=== PATIENT | female | born 1995 | race Caucasian/White ===

== ENCOUNTER 2021-02-23 10:01 | Emergency (ER) | payer MEDICAID, SELFPAY ==
[2021-02-23 10:05] VITALS: BP 138/84; PULSE 85; RESP 16; TEMP 36.7; O2SAT 99; BMI 27.8
--- NOTE | 2021-02-23 10:28 | ED.GENADULT ---
HPI - General Adult General Chief complaint: Vaginal Bleeding Stated complaint: miscarriage, vaginal bleeding Time Seen by Provider: 02/23/21 10:05 Source: patient Mode of arrival: ambulatory Limitations: no limitations History of Present Illness HPI narrative: Patient presents to ED for vaginal bleeding. Patient states in [place] on January 14 she found out she was in the ER and by ultrasound was found to be . Than on January 15 patient returned for heavy bleeding and abdominal pain and was informed she might have a miscarriage but at that time there was no technology adoption manager available in the hospital so patient never had a follow-up ultrasound ever since. Patient states she is bleeding clots and then bleeding stopped 3 days later. Patient states the vaginal bleeding resumed February 08 has been persistent ever since. Patient states bleeding has significantly decreased to now having only brown spotting. Denies any abdominal pain, chest pain, dizziness, weakness or shortness of breath. Related Data Allergies Allergy/AdvReac Type Severity Reaction Status Date / Time SEAFOOD Allergy Severe SWELLING Uncoded 06/30/20 19:22 THROAT AND CLOSING Review of Systems Review of Systems: Yes all other systems are reviewed and are negative Constitutional: Constitutional: Reports as per HPI and Reports no additional constitutional complaints Eyes: Eyes: Reports as per HPI and Reports no additional eye complaints ENT: Reports system reviewed and no additional complaints, except as documented and Reports as per HPI Cardiovascular: Cardiovascular: Reports as per HPI and Reports no additional cardiovascular complaints Respiratory: Respiratory: Reports as per HPI and Reports no additional respiratory complaints Genitourinary: Genitourinary: Reports no additional female genitourinary complaints, Reports as per HPI and Reports abnormal vaginal bleeding Musculoskeletal: Musculoskeletal: Reports no additional musculoskeletal complaints and Reports as per HPI Neurologic: Reports system reviewed and no additional complaints, except as documented and Reports as per HPI Psychiatric: Psychiatric: Reports no additional psychiatric complaints and Reports as per HPI PMF Social History Social History Smoked in Last 30 Days: No Use of substances other than those prescribed or required for medical reasons: Yes Substance Use Type: Marijuana Advance Directives: No Advance Directives Information Provided: No Patient : No Physical Exam Vital Signs: Vital Signs: Last Vital Signs Temp 98.0 F 02/23/21 10:05 Pulse 85 02/23/21 10:05 Resp 16 02/23/21 10:05 BP 138/84 02/23/21 10:05 Pulse Ox 99 02/23/21 10:05 Body Mass Index 27.8 Const: General: cooperative, healthy appearing, comfortable, no acute distress, well developed, alert, awake and Physically active HENMT: Head: Yes normal to inspection, Yes No palpable skull fracture present, Yes normocephalic and Yes atraumatic Eyes: General: appearance normal, both eyes and all related structures Neck: Neck: Yes normal visual inspection, Yes full ROM, Yes no lymphadenopathy, Yes no meningeal signs, Yes trachea midline, Yes supple and No tender Chest: Chest palpation & inspection: normal inspection of the chest and normal palpation of entire chest wall Resp: Effort & Inspection: normal respiratory effort and able to speak in complete sentences Auscultation: clear to auscultation bilaterally Cardio: Jugular venous distension: no JVD Heart sounds: S1 normal heart sound present and S2 normal heart sound present GI: Inspection: Yes normal to inspection and No abdominal wall ecchymosis Palpation (GI): Soft to palpation, not firm, nontender, no guarding and not rigid : General: No CVA tenderness and Yes no CVA tenderness Back/Spine/Pelvis: Back: no CVA tenderness, No CVA tenderness and No back tenderness Skin: General skin exam: no rashes or lesions noted and elasticity normal Neuro: General: patient oriented x3, no meningeal signs and CN's II-XI intact bilaterally Cranial nerves: Yes CN's II-XII intact bilaterally Extrem: General: Yes normal to inspection and Yes full ROM Right upper extremity: normal to inspection Psych: Appearance: grossly normal, well kempt and not disheveled Course Course Course Narrative: Will do basic labs and evaluate for anemia and to see patient is . Patient presently not on any distress. Will do pelvic exam. Reevaluation(s) Reevaluation #1: Patient labs are stable. Patient is not anemic. Patient is not . Labs do not show signs signs of dehydration. Kidney function is normal. Vital signs stable. Patient is hemodynamically stable. Certainly a picture from a phone of the bleeding with blood clot that she had in [place] on January 15. In picture seems as product of conception in the tube with blood clots. Reevaluation #2: Patient's pelvic exam negative for vaginal bleeding, vaginal discharge, vaginal lesions, CMT, or adnexal tenderness. Dr. Lundy of OBGYN was consulted and informed of patient's history, physical exam, and labs. She does not recommend any Ultrasound. She is agreeable that patient most likely had complete spontaneous in January. She recommends just BV, and CTNG and patient to follow-up as outpatient Medical Decision Making MDM Narrative Medical decision making narrative: Dysfunctional uterine bleeding. Lab Data Result diagrams: 02/23/21 10:31 02/23/21 10:31 Labs: Lab Results 02/23/21 02/23/21 02/23/21 Range/Units 10:30 10:31 10:31 WBC 8.4 (4.8-10.8) X10*3/uL RBC 4.06 L (4.20-5.50) X10*6/uL Hgb 12.7 (12.0-16.0) g/dl Hct 39.1 (37-47) % MCV 96.3 (80-98) fL MCH 31.3 (27.0-33.0) pg MCHC 32.5 (31.0-35.0) g/dl RDW 12.5 (11.0-16.0) % Plt Count 336 (160-400) X10*3/uL MPV 11.6 (9.4-12.3) fL Immature Gran % (Auto) 0.5 H (0.0-0.4) % Neut % (Auto) 48.0 (45-73) % Lymph % (Auto) 34.0 (20-40) % [place] % (Auto) 8.3 (2-11) % Eos % (Auto) 8.6 H (0-4) % Baso % (Auto) 0.6 (0-2) % Lymph # (Auto) 2.9 (1.2-4.9) X10*3/uL [place] # (Auto) 0.7 (0.1-1.2) X10*3/uL Eos # (Auto) 0.7 H (0.0-0.4) X10*3/uL Baso # (Auto) 0.1 (0.0-0.2) X10*3/uL Abs Immat Gran (auto) 0.04 H (0.00-0.03) X10*3/uL Absolute Neuts (auto) 4.0 (2.0-8.3) X10*3/uL Absolute Nucleated RBC 0.000 (0.0-0.012) X10*3/uL Nucleated RBC % (auto) 0.0 (0.0-0.2) /100WBC PT 11.8 (10.8-13.0) SEC INR 1.0 (0.9-1.1) APTT 37.9 (24.1-38.0) SEC Sodium (135-145) mmol/L Potassium (3.3-5.1) mmol/L Chloride (96-108) mmol/L Carbon Dioxide (22-29) mmol/L Anion Gap (12-20) BUN (9-16) mg/dL Creatinine (0.5-1.4) mg/dL Estim Creat Clear Calc Estimated GFR Random Glucose (60-115) mg/dL Calcium (8.4-10.2) mg/dL Magnesium (1.6-2.6) mg/dL Total Bilirubin (0.0-1.0) mg/dL Direct Bilirubin (0.0-0.5) mg/dL AST (5-31) U/L ALT (0-31) U/L Alkaline Phosphatase (39-117) U/L Total Protein (6.5-8.0) g/dL Albumin (3.5-5.0) g/dL Beta HCG, Quant mIU/mL Urine Color Urine Appearance Urine pH (5.0-8.0) Ur Specific [place] (1.005-1.025) Urine Protein (NEG-TRACE) MG/DL Urine Glucose (UA) (NEG) MG/DL Urine Ketones (NEG) MG/DL Urine Blood (NEG) Urine Nitrite (NEG) Ur Leukocyte Esterase (NEG) Urine RBC (0) /HPF Urine WBC (0-4) /HPF Ur Squamous Epith Cells /LPF Urine Bacteria /LPF Blood Type O Positive 02/23/21 02/23/21 02/23/21 Range/Units 10:31 10:31 10:31 WBC (4.8-10.8) X10*3/uL RBC (4.20-5.50) X10*6/uL Hgb (12.0-16.0) g/dl Hct (37-47) % MCV (80-98) fL MCH (27.0-33.0) pg MCHC (31.0-35.0) g/dl RDW (11.0-16.0) % Plt Count (160-400) X10*3/uL MPV (9.4-12.3) fL Immature Gran % (Auto) (0.0-0.4) % Neut % (Auto) (45-73) % Lymph % (Auto) (20-40) % [place] % (Auto) (2-11) % Eos % (Auto) (0-4) % Baso % (Auto) (0-2) % Lymph # (Auto) (1.2-4.9) X10*3/uL [place] # (Auto) (0.1-1.2) X10*3/uL Eos # (Auto) (0.0-0.4) X10*3/uL Baso # (Auto) (0.0-0.2) X10*3/uL Abs Immat Gran (auto) (0.00-0.03) X10*3/uL Absolute Neuts (auto) (2.0-8.3) X10*3/uL Absolute Nucleated RBC (0.0-0.012) X10*3/uL Nucleated RBC % (auto) (0.0-0.2) /100WBC PT (10.8-13.0) SEC INR (0.9-1.1) APTT (24.1-38.0) SEC Sodium 138 (135-145) mmol/L Potassium 4.9 (3.3-5.1) mmol/L Chloride 104 (96-108) mmol/L Carbon Dioxide 25 (22-29) mmol/L Anion Gap 14 (12-20) BUN 11 (9-16) mg/dL Creatinine 0.81 (0.5-1.4) mg/dL Estim Creat Clear Calc 98.3 Estimated GFR > 60 Random Glucose 89 (60-115) mg/dL Calcium 9.8 (8.4-10.2) mg/dL Magnesium 1.9 (1.6-2.6) mg/dL Total Bilirubin 0.2 (0.0-1.0) mg/dL Direct Bilirubin < 0.2 (0.0-0.5) mg/dL AST 16 (5-31) U/L ALT 12 (0-31) U/L Alkaline Phosphatase 86 (39-117) U/L Total Protein 8.2 H (6.5-8.0) g/dL Albumin 4.5 (3.5-5.0) g/dL Beta HCG, Quant < 2 mIU/mL Urine Color YELLOW Urine Appearance HAZY Urine pH 6.0 (5.0-8.0) Ur Specific [place] 1.025 (1.005-1.025) Urine Protein NEG (NEG-TRACE) MG/DL Urine Glucose (UA) NEG (NEG) MG/DL Urine Ketones NEG (NEG) MG/DL Urine Blood 2+ H (NEG) Urine Nitrite NEG (NEG) Ur Leukocyte Esterase NEG (NEG) Urine RBC 1-4 (0) /HPF Urine WBC 0-2 (0-4) /HPF Ur Squamous Epith Cells 2+ /LPF Urine Bacteria NONE /LPF Blood Type Discharge Plan Discharge Clinical Impression: Vaginal bleeding Patient Disposition: Home, Self-Care Instructions: Dysfunctional Uterine Bleeding (ED) Additional Instructions: Regrese al servicio de urgencias si tiene dolor abdominal, n?useas, v?mitos, sangrado vaginal profuso, recuentos sangu?neos, mareos o cualquier otro s?ntoma preocupante. Mariano prueba de embarazo en [place] result? negativa. Shannan un seguimiento con el Dr[facility] Enrrique polo [facility]. Referrals: Alicia Lundy MD [Physician] - 2 days (Vaginal bleeding. Miscarriage in January in [place]. Sound like patient had complete in [place] in January. Present beta hCG negative.) Stand Alone Forms: Work/School Release Interventions: ED Discharge Assessment Last Done: 02/23/21 13:56 Discharge Date/Time: 02/23/21 13:57
[2021-02-23 10:38] LABS: MANUAL DIFF FLAG NO
[2021-02-23 10:42] LABS: Basophils Absolute Auto 0.1 X10*3/uL (0.0-0.2); Basophils Percent Auto 0.6 % (0-2); Eosinophils Absolute Auto 0.7 X10*3/uL (0.0-0.4); Eosinophils Percent Auto 8.6 % (0-4); Hematocrit 39.1 % (37-47); Hemoglobin 12.7 g/dl (12.0-16.0); Imm Gran Abs Auto 0.04 X10*3/uL (0.00-0.03); Imm Gran Pct Auto 0.5 % (0.0-0.4); Lymphocytes Absolute Auto 2.9 X10*3/uL (1.2-4.9); Mean Corpuscular HGB Conc 32.5 g/dl (31.0-35.0); Mean Corpuscular Hemoglobin 31.3 pg (27.0-33.0); Mean Corpuscular Volume 96.3 fL (80-98); Mean Platelet Volume 11.6 fL (9.4-12.3); Monocytes Absolute Auto 0.7 X10*3/uL (0.1-1.2); Monocytes Percent Auto 8.3 % (2-11); Platelet Count 336 X10*3/uL (160-400); Red Blood Count 4.06 X10*6/uL (4.20-5.50); Red Cell Distribution Width 12.5 % (11.0-16.0); White Blood Count 8.4 X10*3/uL (4.8-10.8)
[2021-02-23 10:48] LABS: Prothrombin Time 11.8 SEC (10.8-13.0)
[2021-02-23 10:50] LABS: Partial Thromboplastin Time 37.9 SEC (24.1-38.0)
[2021-02-23 10:55] LABS: Glucose Urine UA NEG (NEG); Leukocyte Esterase Urine NEG (NEG); Nitrite Urine NEG (NEG); Specific Gravity - Urine 1.025 (1.005-1.025); Urine Blood 2+ (NEG); Urine Ketones NEG (NEG); Urine Protein NEG (NEG-TRACE)
[2021-02-23 10:58] LABS: Appearance Urine HAZY; Color Urine YELLOW
[2021-02-23 11:04] LABS: Alanine Aminotransferase 12 U/L (0-31); Albumin Level 4.5 g/dL (3.5-5.0); Alkaline Phosphatase 86 U/L (39-117); Anion Gap 14 (12-20); Aspartate Amino Transferase 16 U/L (5-31); Bilirubin Direct < 0.2 mg/dL (0.0-0.5); Bilirubin Total 0.2 mg/dL (0.0-1.0); Blood Urea Nitrogen 11 mg/dL (9-16); Calcium 9.8 mg/dL (8.4-10.2); Carbon Dioxide 25 mmol/L (22-29); Chloride 104 mmol/L (96-108); Creatinine Clr Calc Pharmacy 98.3; Estimated Glomerular Filt Rate > 60; Glucose Random 89 mg/dL (60-115); Magnesium 1.9 mg/dL (1.6-2.6); Potassium 4.9 mmol/L (3.3-5.1); Sodium 138 mmol/L (135-145); Total Protein 8.2 g/dL (6.5-8.0)
--- NOTE | 2021-02-23 11:05 | PC.NURSE ---
patient blood type O positive. will notify
[2021-02-23 11:07] LABS: Squamous Epithelial Cell Urine 2+ /LPF; WBC Urine 0-2 /HPF (0-4)
[2021-02-23 11:10] LABS: HCG Quantitative < 2 mIU/mL
[2021-02-23 15:19] LABS: CT PCR NOT DETECTED (Not Detect.); NG PCR NOT DETECTED (Not Detect.)
[2021-02-24 09:15] LABS: BV Int Neg Control Negative (Negative); BV Int Pos Control Positive (Positive)
== END 2021-02-23 13:57 | disposition home or self-care (01) ==
PROVIDERS: Physician Assistant; Emergency Provider Emergency Medicine
DX: N93.9 Abnormal uterine and vaginal bleeding, unspecified (principal)
CPT/HCPCS: 36415; 80048; 80076; 81001; 83735; 84702; 85025; 85610; 85730; 86900; 86901; 87480; 87491; 87510; 87591; 87660; 99283; 99284

== ENCOUNTER 2021-03-06 15:43 | Outpatient (REF) | payer MEDICAID, SELFPAY ==
[2021-03-07 08:58] LABS: BV Int Neg Control Negative (Negative); BV Int Pos Control Positive (Positive)
[2021-03-07 08:59] LABS: CT PCR NOT DETECTED (Not Detect.); NG PCR NOT DETECTED (Not Detect.)
== END 2021-03-06 15:44 | disposition home or self-care (01) ==
LOC: HO.LAB 15:43
PROVIDERS: Visit Provider Obstetrics & Gynecology
DX: O03.9 Complete or unspecified spontaneous abortion without complication (principal); F17.200 Nicotine dependence, unspecified, uncomplicated; Z11.3 Encounter for screening for infections with a predominantly sexual mode of transmission
CPT/HCPCS: 87480; 87491; 87510; 87591; 87660; 88142; 99202

== ENCOUNTER 2021-04-14 13:41 | Emergency (ER) | payer MEDICAID, SELFPAY ==
[2021-04-14 13:45] VITALS: BP 105/52; PULSE 62; RESP 16; TEMP 37.1; O2SAT 99; BMI 25.7
--- NOTE | 2021-04-14 15:59 | ED_ITS ---
HPI - General Adult General Chief complaint: General Medical Stated complaint: SEIZURE Time Seen by Provider: 04/14/21 15:55 Source: patient and EMS Mode of arrival: EMS Limitations: no limitations History of Present Illness HPI narrative: 25 y/o female with history of seizures not on any medications who presents to the ER from work with witnessed generalized tonic clonic seizure that lasted about 30 seconds. She felt an aura before the event, hold her co- workers who helped lower her to the ground. She had brief seizure activity with generalized tonic clonic movements. She has no injuries and no incontinence. She reports history of seizures in the past when she lives in [place] but she states she was never put on any medications. complaint: seizure Onset (ago): hour(s) (1) Severity: moderate Relieving factors: none Exacerbating factors: none Associated symptoms: denies other symptoms Treatments prior to arrival: none Related Data Previous Rx's Medication Instructions Recorded desogestrel 0.15 mg-ethinyl 1 tab PO DAILY 28 Days #28 tab 03/06/21 estradiol 0.03 mg tablet Allergies Allergy/AdvReac Type Severity Reaction Status Date / Time SEAFOOD Allergy Severe SWELLING Uncoded 06/30/20 19:22 THROAT AND CLOSING Review of Systems Review of Systems: Constitutional: No Fever, No Chills ENT/Mouth: No sore throat, No Rhinorrhea, No Swallowing Difficulty Eyes: No Eye Pain, No Swelling, No Redness Cardiovascular: No Chest Pain, No SOB, No Orthopnea, No Edema Respiratory: No Cough, No Sputum, No Wheezing, No dyspnea Gastrointestinal: No Nausea, No Vomiting, No Diarrhea, No abdominal Pain, No Hematochezia, No Melena Genitourinary: No Dysuria, No Urinary Frequency, No Hematuria Musculoskeletal: No joint pain, No Myalgias Skin: No Skin Lesions, No rash Neuro: No Weakness, No Numbness, No Dizziness, + Headache Psych: No Anxiety/Panic, No Depression Heme/Lymph: No Bruising, No Lymphadenopathy Endocrine: No Polyuria, No Polydipsia PMFSH Past Medical History Attestation statement: The following information was validated with the patient. Social History Social History Alcohol intake: never Patient Tobacco Use Status: Never used Tobacco Use of substances other than those prescribed or required for medical reasons: No Substance Use Type: Marijuana Advance Directives: Yes Advance Directives Information Provided: Yes Advance Directives on File: No Patient : No Physical Exam Vital Signs: Vital Signs: Last Vital Signs Temp 98.8 F 04/14/21 13:45 Pulse 62 04/14/21 13:45 Resp 16 04/14/21 13:45 BP 105/52 L 04/14/21 13:45 Pulse Ox 99 04/14/21 13:45 Body Mass Index 25.7 Appearance: Alert. Oriented X3. No acute distress. Eyes: Pupils equal, round and reactive to light. ENT: Pharynx normal. Neck: Normal inspection. Neck supple. CVS: Normal heart rate and rhythm. Pulses normal. Respiratory: No respiratory distress. Breath sounds normal. Abdomen: Soft and nontender. +BS x4 Skin: Skin warm and dry. Normal skin color. Normal skin turgor. No rashes. Extremities: No lower extremity edema. Neuro: Oriented X 3. No motor deficit. No sensory deficit. Up walking around in the room. Non-focal Course Course Course Narrative: 25 y/o female presenting with witnessed seizure activity at work. History of similar episodes. Patient waited 2 hours to be seen and once evaluated she reports she needs to leave the ER CRISTOPHER to get home to her children. She feels fine and would like to leave AMA. Encouraged to stay for basic workup however she is refusing. She understands the risks of possible ongoing seizures and potential . Signed AMA paperwork and agrees to call her provider at [facility] Saturday to be seen. Discharge Plan Discharge Clinical Impression: Seizure Patient Disposition: Left Against Medical Advice Instructions: Generalized Tonic Clonic Seizures (ED) Additional Instructions: It was recommended you stay in the ER for full workup, however you decided to leave against medial advise. Follow up with your doctor on Saturday. Prescriptions: No Action desogestrel-ethinyl estradiol [Apri] 0.15-0.03 mg tablet 1 tab PO DAILY 28 Days Qty: 28 RF: 2 Stand Alone Forms: Against Medical Advice Interventions: ED Discharge Assessment Last Done: 04/14/21 16:07 Discharge Date/Time: 04/14/21 16:08
--- NOTE | 2021-04-14 16:00 | PC.NURSE ---
pt requesting to leave. pa aware. pa at bedside.
== END 2021-04-14 16:08 | disposition left against medical advice (07) ==
PROVIDERS: Emergency Provider Emergency Medicine Emergency Medical Services
DX: R56.9 Unspecified convulsions (principal)
CPT/HCPCS: 99282; 99284

== ENCOUNTER 2025-03-23 23:19 | Emergency (ER) | payer MEDICAID, SELFPAY ==
[2025-03-23 23:49] VITALS: BP 107/52; PULSE 60; RESP 17; TEMP 36.3; O2SAT 100; BMI 25.3
[2025-03-24 02:05] LABS: MANUAL DIFF FLAG NO
--- OUTSIDE RECORDS SUMMARY | 2025-03-24 02:06 | XMS_ITS | Clinical Summary ---
Author Organization [facility] Address [address] [place] [address] Care Team Providers Care Clerical Stock Inspector Name Role Phone Iraida Magdaleno MD Primary Care Provider + Allergies Active Allergy Reactions Criticality Noted Date Comments Shellfish Allergy 02/24/2024 Active Problems Problem Noted Date Diagnosed Date Anxiety and depression 10/23/2024 Asthma 10/23/2024 Bipolar disorder 10/23/2024 Cyst of ovary 10/23/2024 Environmental and seasonal allergies 10/23/2024 History of varicella 10/23/2024 Infection due to Chlamydia species 10/23/2024 Irregular menstrual cycle 10/23/2024 Non-Persian speaking patient 10/23/2024 10/23/2024 Moderate episode of recurrent major depressive d isorder 06/01/2024 Encounters Date Type Department Care Team Description 12/25/2024 Population Health Risk Score [facility] ([facility]) Department [address] [id number] Provider, Population Health Generic from Last 3 Months Immunizations Immunization Administration Dates Next Due Hep B, Unspecified 09/13/2018 Influenza injectable quadrivalent preservative f ree 07/08/2018 MMR 09/13/2018 Tdap 07/09/2024 Social History Tobacco Use Types Packs/Day Years Used Date Smoking Tobacco: Never Smokeless Tobacco: Never Tobacco Cessation:Counseling Given: Not Answered Alcohol Use Standard Drinks/Week Comments Never 0 (1 standard drink = 0.6 oz pur e alcohol) Depression Answer Date Recorded Patient Health Questionnaire-9 Score 16 06/01/2024 Patient Health Questionnaire-9 Score 16 06/01/2024 Last PHQ-9: Questionnaire Data Not on file 0 06/01/2024 Housing Stability Answer Date Recorded What is your housing situation today? I have soniya sing 09/18/[address] you li ve. Do you have problems with any of the following? None of the above 09/18/2024 Food Insecurity Answer Date Recorded Within the past 12 months, y ou worried that your food would run out before you got money to buy more: Never True 09/18/2024 Within the past 12 months,th e food you bought just didn't last and you didn't have enough money to get more: Never True 03/2024 Transportation Answer Date Recorded In the past 12 months, has l ack of transportation kept you from medical appts, meetings, work or from getting things needed for daily living? No 09/18/2024 Utilities Answer Date Recorded In the past 12 months, has t he electric, gas, oil or water company threatened to shut off services in your home? No 09/18/2024 Depression Answer Date Recorded Patient Health Questionnaire-2 Score 6 06/01/2024 Internet Access Answer Date Recorded Internet Access Q1 Yes 09/18/2024 Internet Access Q2 Not on file 09/18/2024 Comments Unknown Sex and Gender Information Value Date Recorded Sex Assigned at Female 08/13/2022 10:36 AM EDT Legal Sex Female 10:36 AM EDT Gender Identity Female 01/09/2024 8:58 AM EDT Sexual Orientation Choose not to disclose 2023 6:15 PM EDT Last Filed Vital Signs Vital Sign Reading Time Taken Comments Blood Pressure 114/66 02/24/2024 6:50 PM EDT Pulse 71 02/24/2024 6:50 PM EDT Temperature 36.2 ??C (97.2 ??F) 02/24/2024 6:50 PM ED T Respiratory Rate - - Oxygen Saturation 98% 02/24/2024 6:50 PM EDT Inhaled Oxygen Concentration - - Weight 67.2 kg (148 lb 4 oz) 02/24/2024 6:50 PM EDT Height - - Body Mass Index - - Plan of Treatment Health Maintenance Due Date Last Done Comments HIV Screening 1997 Disability Screening 1997 Alcohol/Substance Use Screening 2009 Family Planning (PISQ) 2012 Hepatitis C Screening 2015 Pneumococcal Vaccine: Pediatrics (0 to 5 Years) and At-Risk Patients (6 to 49) Years) (1 of 2 - PCV) 2016 Hepatitis B Vaccines (2 of 3 - 19+ 3-dose series) 10/11/2018 09/13/2018 Pap Smear 03/06/2024 03/06/2021 COVID-19 Vaccine (3 - 2023-2 5 season) 2024 04/02/2021, 03/12/2021 Depression Monitoring 12/02/2024 06/01/2024 , 06/01/2024 Influenza Vaccine (Season Ended) 2025 07/08/2018 SDOH Screening 09/18/2025 09/18/2024 Tobacco Screening 09/18/2025 09/18/2024 DTaP/Tdap/Td Vaccines (2 - T d or Tdap) 07/09/2034 07/09/2024 Zoster Vaccines (1 of 2) 2047 RSV Patients and Patients Aged 60 years or older (1 - 1-dose 75+ series) 2072 HIB Vaccines Aged Out No longer eligi ble based on patient's age to complete this topic HPV Vaccines Aged Out No longer eligi ble based on patient's age to complete this topic Hepatitis A Vaccines Aged Out No long er eligible based on patient's age to complete this topic IPV Vaccines Aged Out No longer eligi ble based on patient's age to complete this topic Meningococcal B Vaccine Aged Out No l onger eligible based on patient's age to complete this topic Meningococcal Vaccine Aged Out No nicanor annette eligible based on patient's age to complete this topic RSV under 20 months Aged Out No longe r eligible based on patient's age to complete this topic Rotavirus Vaccines Aged Out No longer eligible based on patient's age to complete this topic Procedures Procedure Name Priority Date/Time Associated Diagnosis Comments HM PAP/HPV Routine 03/06/2021 from Last 3 Months or Most Recently Relevant to Health Maintenance Results * Hm Pap Smear (03/06/2021) Historical Provider HEALTH MAINTENANCE Final Result from Last 3 Months or Most Recently Relevant to Health Maintenance Insurance [facility] Care Teams Clerical Stock Inspector Relationship Specialty Start Date End Date Iraida Magdaleno MD [address] [place] [id number] PCP - General Internal Medicine 10/23/24
[2025-03-24 02:09] LABS: Basophils Absolute Auto 0.1 X10*3/uL (0.0-0.2); Basophils Percent Auto 0.9 % (0-2); Eosinophils Absolute Auto 0.3 X10*3/uL (0.0-0.4); Eosinophils Percent Auto 3.8 % (0-4); Hematocrit 35.5 % (37.0-47.0); Hemoglobin 12.1 g/dl (12.0-16.0); Imm Gran Abs Auto 0.03 X10*3/uL (0.00-0.03); Imm Gran Pct Auto 0.3 % (0.0-0.4); Lymphocytes Absolute Auto 3.3 X10*3/uL (1.2-4.9); Lymphocytes Percent Auto 38.5 % (20-40); Mean Corpuscular HGB Conc 34.1 g/dl (31.0-35.0); Mean Corpuscular Hemoglobin 31.2 pg (27.0-33.0); Mean Corpuscular Volume 91.5 fL (80.0-98.0); Mean Platelet Volume 11.4 fL (9.4-12.3); Monocytes Absolute Auto 0.8 X10*3/uL (0.1-1.2); Monocytes Percent Auto 8.7 % (2-11); Neutrophils Absolute Auto 4.1 x10*3/uL (2.0-8.3); Neutrophils Percent Auto 47.8 % (45-73); Platelet Count 210 X10*3/uL (160-400); Red Blood Count 3.88 X10*6/uL (4.20-5.50); Red Cell Distribution Width 14.4 % (11.0-16.0); White Blood Count 8.6 X10*3/uL (4.8-10.8)
[2025-03-24 02:21] LABS: Alanine Aminotransferase 28 U/L (0-31); Albumin Level 4.7 g/dL (3.5-5.0); Alkaline Phosphatase 59 U/L (39-117); Anion Gap 11 (12-20); Aspartate Amino Transferase 23 U/L (5-31); Bilirubin Direct 0.1 mg/dL (0.0-0.5); Bilirubin Total 0.3 mg/dL (0.0-1.0); Blood Urea Nitrogen 17 mg/dL (9-16); Calcium 9.3 mg/dL (8.4-10.2); Carbon Dioxide 24 mmol/L (22-29); Chloride 109 mmol/L (96-108); Creatinine Clr Calc Pharmacy 103.5; Estimated Glomerular Filt Rate > 60; Glucose Random 84 mg/dL (60-115); Potassium 3.8 mmol/L (3.3-5.1); Sodium 140 mmol/L (135-145); Total Protein 7.5 g/dL (6.5-8.0)
[2025-03-24 02:45] LABS: Influenza A PCR NEGATIVE (Negative); Influenza B PCR NEGATIVE (Negative); Resp Syncy Virus RNA Qual PCR NEGATIVE (Negative); SARS COV2 PCR INHOUSE NEGATIVE (Negative)
== END 2025-03-24 06:07 | disposition left against medical advice (07) ==
PROVIDERS: Emergency Provider Emergency Medicine
DX: R53.1 Weakness (principal); Z03.818 Encounter for observation for suspected exposure to other biological agents ruled out; R51.9 Headache, unspecified
CPT/HCPCS: 0241U; 36415; 80048; 80076; 85025; 99281

== ENCOUNTER 2025-04-24 16:10 | Emergency (ER) | payer MEDICAID, SELFPAY ==
[2025-04-24 16:35] VITALS: BP 108/62; BP 115/70; PULSE 62; PULSE 66; RESP 18; TEMP 36.6; O2SAT 98; BMI 26.1
--- NOTE | 2025-04-24 16:41 | ECG_ITS ---
Test Reason : SYNCOPE Blood Pressure : */* mmHG Vent. Rate : 73 BPM Atrial Rate : 73 BPM P-R Int : 158 ms QRS Dur : 92 ms QT Int : 434 ms P-R-T Axes : 66 61 48 degrees QTcB Int : 478 ms Normal sinus rhythm with sinus arrhythmia Normal ECG When compared with ECG of 21-Aug-2018 03:58, No significant change was found Referred By: Generic ED Physician Electronically Signed By: Darin Hein
--- OUTSIDE RECORDS SUMMARY | 2025-04-24 16:52 | XMS_ITS | Clinical Summary ---
Author Organization [facility] Address [address] [place] [address] Care Team Providers Care Video Editing Intern Name Role Phone Unavailable Primary Care Provider Unavailabl e Social History Tobacco Use Types Packs/Day Years Used Date Smoking Tobacco: Never Assessed Comments Unknown Sex and Gender Information Value Date Recorded Sex Assigned at Not on file Legal Sex Female 4:50 AM EST Gender Identity Not on file Sexual Orientation Not on file Plan of Treatment Health Maintenance Due Date Last Done Comments DTaP,Tdap,and Td Vaccines (1 - Tdap) 2016 Hepatitis B Vaccines (1 of 3 - 19+ 3-dose series) 2016 Cervical Cancer Screening: P ap Smear 2018 COVID-19 Vaccine ( - 2023-2 5 season) 2024 Influenza Vaccine (#1) 2025 HIB Vaccines Aged Out No longer eligi [...] on patient's age to complete this topic MMR Vaccines Aged Out No longer eligi ble based on patient's age to complete this topic Meningococcal ACWY Vaccine Aged Out N o longer eligible based on patient's age to complete this topic Meningococcal B Vaccine Aged Out No l onger eligible based on patient's age to complete this topic Pneumococcal Vaccine: Pediat rics (0 to 5 Years) and At-Risk Patients (6 to 49 Years) Aged Out No longer eligible b ased on patient's age to complete this topic RSV Immunization Patients Un akshat 20 months Aged Out No longer eligible b ased on patient's age to complete this topic Varicella Vaccines Aged Out No longer eligible based on patient's age to complete this topic
--- OUTSIDE RECORDS SUMMARY | 2025-04-24 16:52 | XMS_ITS | Data Portability ---
Author Organization [facility] Address [address] [place] [address] Assessment Encounter Date Assessment Date Assessment LastModified by Organization Details LastModified Time 06/03/2017 06/03/2017 6w6d c/w US at [facility] last week. EDC January 21 2018. Work note given for lifting restrictions. Rx for zofran sent to pharmacy. Patient understands that the physician seeing her today may not manage her . Appointment with nurse practitioner for new OB work-up to include: Urinalysis Culture, Urine New OB Panel consisting of: CBC Rubella IgG Antibody Screen ABO and RH RPR Hepatitis B Surface Antigen Hepatitis C Antibody HIV I HIV II Chlamydia Culture, Gonorrhea PAP (age 21-29): Thin Prep TIS W/Reflex HPV PAP (age 30-65): Cytology, Thin Prep PAP and HPV High Risk (Thin Prep/SurePath) Influenza Vaccine per protocol Tdap Vaccine @ 26 weeks gestation Vitamins OB Educational Packet/Handouts Culture, Group B Strep per protocol @ 35 weeks gestation O'Soto Screen @ 26 weeks gestation Wet Prep/CARMELO per protocol OB Ultrasound per protocol after discussion with Physician Fasting/Random Glucose per protocol Post checks as indicated Post contraception (ie: IUD, Nexplanon, Oral contraception, etc.) as indicated Cystic Fibrosis Profile if indicated Fragile X Syndrome if indicated Spinal Muscular Atrophy SMA if indicated Screening for Chromosomes 21, 18, 13, X and Y if indicated [email or web address] Not available 06/03/2017 15:50:05 Plan of Treatment Reminders Order Date Submit Date Provider Last Modified By Organization Details Last Modified Time Details Appointments None recorded . Lab None recorded . Referral None recorded . Procedures None recorded . Surgeries None recorded . Imaging None recorded . Medication Orders Zofran 4 mg tablet [id number] INTERFACE Not available 7 15:55:43 Patient TargetsNo targets recorded. Patient Instructions Encounter Date Encounter Id Patient Instructions Last Modified By Organization Details Last Modified Time 06/03/2017 [id number] managing morning sickness: care instructions [email or web address] Not available 06/03/2017 15:53:15 Discussed diet, exercise, and weight gain. Pamplets issued and discussed. [email or web address] Not available 06/03/2017 15:02:42 Reason for Referral None Reported. Results Created Date Observation Date Name Description Value Unit Range Abnormal Flag Note LastModifiedBy Organization Detail LastModifiedTime 06/03/20 17 05/28/2017 US, obste tric, limit ed No observ ation record ed. BARCODE Not Available 2016 16:29:39 Result Notes None recorded. Problems No Known Problems Medical Equipment None Reported. Allergies No known drug allergies Medications Name Sig Start Date Stop Date Status Note LastModified by Organization Details LastModified Time Zofran 4 mg tablet Take 1 tablet every 6 hours by oral route. 2016 active Not Available Not Available Not Avai lable clindamycin 2 % vaginal cream 06/03 completed Not Available Not Available Not Available azithromycin 500 mg tablet 06/03 completed Not Available Not Available Not Available Vitals Date Recorded Body height Body mass index (BMI) Body weight Systolic And Diastolic Provider Name and Address Organization Details Last Updated DateTime 06/03/2017 157.48 cm 27.4 kg/m2 80702.86 g 122/68 mm[Hg] AGUSTIN [place] [facility] 06/03/2017 15:14:58 Social History Question Answer Notes LastModified by Organizat ion Details LastModified Time Tobacco Smoking Status Never Smoker AGUSTIN [place] - [facility] 06/03/2017 15:20:36 Is Blood Transfusion Acceptable In An Emergency? No Information not available 06/03/2017 Which Illicit Or Recreational Drugs Have You Used? None Information not available 06/03/2017 Jehovah'S Witness None [email or web address] Informati on not available 06/03/2017 Race Hisp Informati on not available 06/03/2017 Alternate Contact & Phone Number With Relation To Patient [phone] Partner Jesús Espinosa Information not available 06/03/2017 Breast Or Bottle Feeding? Breast Information not available 06/03/2017 History Of HSV? No Info rmation not available 06/03/2017 Have You Traveled Outside Of The Country In The Last Month? No Information not available 06/03/2017 What Was The Date Of Your Most Recent Tobacco Screening? 06/03/2017 Information n ot available 05/07/2019 Smoking Pre- No Information not available 06/03/2017 Sex: Unknown Functional Status Question Answer Note LastModified by Organizat ion Details LastModified Time What is your level of alcohol consumption? None Information not available 06/03/2017 What is your occupation? [employer] Information not available 06/03/2017 Mental Status None recorded. Family History Relationship Description Onset Age of this Age Resolved Age Notes LastModified by Organization Details LastModified Time Maternal Grandmother Hypertensive disorder [email or web address] pn Not available 06/03/2017 15:20:09 Paternal Grandmother Hypertensive disorder [email or web address] pn Not available 06/03/2017 15:20:22 Medical History Condition Response Seizures/Convulsions/Fainting N HIV N Other Cancer N High blood pressure N Other N Colon Cancer N Ear or Hearing Problems N Breast Cancer N Heart Problems/Condition N High blood sugar or Diabetes N Nose or Throat Problems N Thyroid Problems N GI Problems N Breast Problem N Depression/Anxiety Y Uterine Cancer N Problems N Hospitalizations Other N Ovarian Cancer N Muscle, Joint, or Bone Problems N Rheumatic Fever N Lung Disorder/Disease N Bladder or Kidney Problems/Disease N Neurological Conditions N High cholesterol or triglycerides N Tuberculosis N Defects or Inherited Diseases N Cancer N Varicosities N Stroke N Asthma N Allergies N Anemia or Blood Disorder N Last Mammogram N Jaundice N Past Medical History: Unremarkable N GERD/Reflux N Hepatitis N Serious Injuries N Headaches or Dizziness N Gynecological History Statement/Question Response Flow Moderate Date of LMP 03/30/2017 Date of Last PAP smear none Date of Last Bone Density none On BCP's at Conception? N Current Control Method Date of Last Colonoscopy none Blood Type none Menses Monthly Y Have you received any care for this anywhere else? History of Abnormal Pap Smear N Date of Last Mammogram none Do you have any history of genital Herpe s? N Obstetrics History GPAL:G 1 P 0 0 0 0 Past Encounters Encounter ID Performer Location Encounter Start Date Encounter Closed Date Diagnosis/Indication Diagnosis SNOMED-CT Code Diagnosis ICD10 Code Diagnosis Note [id number] Anaid Stratton MD [facility] [place] [place] [address] [place] [id number] 06/03/2017 14:07:22 06/13/2017 12:03:22 Morning sickness 56685073 O21.9 Health Concerns Section Related Observation LastModified by Organization Detai ls LastModified Time None Recorded Concern Status LastModified by Organization Details LastModified Time None Recorded Advance Directives Directive None Recorded Payers Insurance Date Sequence Insurance Name Policy Number Policy Johnson Covered Member ID Johnson Member ID Guarantor Name 06/03/2017 1 *SELF PAY* Rachel Osorio Notes Date Note Type Note Provider Name and Address Organization Details Recorded Time 06/03/2017 text/html unsure; LMP 03/30/17. 9w1d. EDC 01/04/18. Anaid Stratton MD [facility] Kirstin Barajas, [place], [address], [place] - [facility] 06/13/2017 01:19:21 OBGyn Episode No OBEpisode recorded.
[2025-04-24 17:12] LABS: MANUAL DIFF FLAG NO
[2025-04-24 17:13] LABS: Hematocrit 31.6 % (37.0-47.0); Hemoglobin 11.0 g/dl (12.0-16.0); Imm Gran Abs Auto 0.03 X10*3/uL (0.00-0.03); Imm Gran Pct Auto 0.4 % (0.0-0.4); Lymphocytes Absolute Auto 2.3 X10*3/uL (1.2-4.9); Mean Corpuscular HGB Conc 34.8 g/dl (31.0-35.0); Mean Corpuscular Hemoglobin 31.8 pg (27.0-33.0); Mean Corpuscular Volume 91.3 fL (80.0-98.0); NRBC Abs Auto 0.000 X10*3/uL (0.0-0.012); NRBC Pct Auto 0.0 /100WBC (0.0-0.2); Platelet Count 179 X10*3/uL (160-400); Red Blood Count 3.46 X10*6/uL (4.20-5.50); White Blood Count 8.3 X10*3/uL (4.8-10.8)
[2025-04-24 17:23] VITALS: BP 101/44; PULSE 52
--- NOTE | 2025-04-24 17:23 | ED.GENADULT ---
HPI - General Adult General Chief complaint: Syncope Stated complaint: headache feeling faint fall headstrike Time Seen by Provider: 04/24/25 16:47 Source: patient, RN notes reviewed and old records reviewed Mode of arrival: EMS Limitations: no limitations (Patient declined Albanian intepreter) History of Present Illness ED Provider: Machelle MARIE narrative: 29-year-old female who denies any past medical history presents for evaluation of a near syncopal episode. Patient reports that she was at work today. She works at [employer] She reports feeling lightheaded and dizzy and felt like she is going to pass out. She got hot and sweaty 1 of her coworkers helped stop her from falling to the ground and EMS was called. The patient has started to complain of pain in the back of her head after this episode but not prior to or during She still complains of a mild posterior headache She reports feeling weak. She has not had anything to eat or drink at all today Denies any chest pain, cough, shortness of breath. Denies any fevers, chills abdominal pain, nausea, vomiting. She does not believe she is but is sexually active Related Data Previous Rx's ?Medication ?Instructions ?Recorded desogestrel 0.15 mg-ethinyl 1 tab PO DAILY 28 days #28 tabs 03/06/21 estradiol 0.03 mg tablet (Apri) Allergies Allergy/AdvReac Type Severity Reaction Status Date / Time SEAFOOD Allergy Severe SWELLING Uncoded 04/24/25 16:36 THROAT AND CLOSING Review of Systems Constitutional: Constitutional: Denies body ache(s), Denies chills, Denies fever(s), Denies frequent falls and Reports headache(s) Eyes: Eyes: Denies blind spots and Denies blurry vision ENT: Denies vertigo, Denies dizziness and Reports headache(s) Cardiovascular: Cardiovascular: Denies chest pain, Denies chest pain at rest, Denies chest pain with activity, Reports diaphoresis, Reports syncope (near syncope), Reports lightheadedness and Denies dyspnea on exertion Respiratory: Respiratory: Denies cough and Denies dyspnea on exertion Gastrointestinal: Gastrointestinal: Denies abdominal pain, Denies nausea and Denies vomiting Genitourinary: Genitourinary: Denies dysuria and Denies pelvic pain Musculoskeletal: Musculoskeletal: Denies back pain Integumentary/Breasts: Skin/Breast: Denies rash Neurologic: Denies vertigo, Denies dizziness, Reports syncope (near syncope), Denies frequent falls and Reports headache(s) Psychiatric: Psychiatric: Denies anxiety PMFSH Social History Social History Alcohol intake: never Patient Tobacco Use Status: Never used Tobacco Smoked in Last 30 Days: No Use of substances other than those prescribed or required for medical reasons: No Substance Use Type: Marijuana Advance Directives: No Advance Directives Information Provided: No Physical Exam ED Vital Signs: Vital Signs - 24 hr 04/24/25 16:35 04/24/25 17:23 04/24/25 17:25 Temperature 97.9 F Pulse Rate 62 52 52 Respiratory Rate 18 Blood Pressure 115/70 101/44 L 104/54 L Pulse Oximetry 98 Oxygen Delivery Method Room Air 04/24/25 17:26 04/24/25 17:34 Temperature Pulse Rate 50 Respiratory Rate Blood Pressure 106/58 L Pulse Oximetry 98 Oxygen Delivery Method Room Air BMI result Body Mass Index 26.1 Const General: healthy appearing, comfortable, no acute distress, alert and awake Nutritional Appearance: well nourished Orientation/consciousness: patient oriented x3 HENMT Head: Yes normocephalic and Yes atraumatic Eyes Eyelids: Yes eyelids normal Conjunctivae: conjunctivae normal Sclerae: sclerae normal Corneas: corneas normal Pupils: Equal, round and reactive pupils present EOM: EOMs intact bilaterally Neck Neck: Yes full ROM Resp Effort & Inspection: normal respiratory effort, able to speak in complete sentences, no audible wheezes and not labored Auscultation: clear to auscultation bilaterally Cardio Rate: regular rate Rhythm: regular rhythm GI Inspection: No distended Palpation (GI): Soft to palpation, not firm, nontender, no guarding and not rigid Skin General skin exam: no rashes or lesions noted and elasticity normal Neuro General: patient oriented x3 Cranial nerves: Yes CN's II-XII intact bilaterally, Yes Equal, round and reactive pupils present and Yes Bilaterally intact EOM present Cognition (Neuro): normal cognition Extrem Other: Moving all extremities well without any obvious deformities Medications Administered Discontinued Medications Generic Name Dose Route Start Last Admin Trade Name Freq PRN Reason Stop Dose Admin Acetaminophen 975 mg 04/24/25 18:17 04/24/25 18:49 Acetaminophen 325 Mg Tablet PO 04/24/25 18:18 975 mg ONCE ONE Administration Sodium Chloride 1,000 mls @ 999 mls/hr 04/24/25 17:00 04/24/25 18:49 Ns IV 04/24/25 18:00 Infused .Q1H1M JEANNE Infusion Medical Decision Making Medical Decision Making [facility] Narrative: 9-year-old female with no significant past medical history presents for evaluation of in your syncopal episode of the happened at work. She does note that she is 7 months but was feeling well up until today. She reports that she has not had anything to eat or drink today. She denies any abdominal pain, nausea or vomiting. She denies any chest pain, shortness of breath. I suspect that her symptoms may be related to not eating or drinking at all today and a vasovagal episode. This is less likely cardiac but an EKG will be obtained. The patient has no chest pain. We will check basic labs to assess kidney function, check for electrolyte abnormalities and significant anemia. The patient has no neuro deficits, less likely intracranial hemorrhage aneurysm. We will defer CT scan of the brain. We will treat you for the hood pending and further evaluation and management as appropriate Differential Diagnosis Differential Diagnoses: The differential diagnosis associated with the presentation includes Syncope Near-syncope Lightheadedness TINO Orthostasis Symptomatic anemia Dehydration Brain aneurysm less likely Admission/Observation Consideration of admission/observation: Escalation of care including admission/observation considered Lab Data [facility] Lab Attestation statement: I reviewed the patient's lab results. No leukocytosis. The patient has a very mild anemia with a hemoglobin of 11.0 and hematocrit of 31.6, this may be related to her menstrual cycle. In his a normocytic anemia. Platelet count within normal limits. 04/24/25 17:07 04/24/25 17:07 Labs: Lab Results 04/24/25 04/24/25 04/24/25 Range/Units 17:07 17:10 19:26 WBC 8.3 (4.8-10.8) X10*3/uL RBC 3.46 L (4.20-5.50) X10*6/uL Hgb 11.0 L (12.0-16.0) g/dl Hct 31.6 L (37.0-47.0) % MCV 91.3 (80.0-98.0) fL MCH 31.8 (27.0-33.0) pg MCHC 34.8 (31.0-35.0) g/dl RDW 13.2 (11.0-16.0) % Plt Count 179 (160-400) X10*3/uL MPV 11.7 (9.4-12.3) fL Immature Gran % (Auto) 0.4 (0.0-0.4) % Neut % (Auto) 57.5 (45-73) % Lymph % (Auto) 28.3 (20-40) % [place] % (Auto) 7.9 (2-11) % Eos % (Auto) 5.1 H (0-4) % Baso % (Auto) 0.8 (0-2) % Lymph # (Auto) 2.3 (1.2-4.9) X10*3/uL [place] # (Auto) 0.7 (0.1-1.2) X10*3/uL Eos # (Auto) 0.4 (0.0-0.4) X10*3/uL Baso # (Auto) 0.1 (0.0-0.2) X10*3/uL Abs Immat Gran (auto) 0.03 (0.00-0.03) X10*3/uL Absolute Neuts (auto) 4.8 (2.0-8.3) x10*3/uL Absolute Nucleated RBC 0.000 (0.0-0.012) X10*3/uL Nucleated RBC % (auto) 0.0 (0.0-0.2) /100WBC Sodium 139 (135-145) mmol/L Potassium 3.5 (3.3-5.1) mmol/L Chloride 112 H (96-108) mmol/L Carbon Dioxide 22 (22-29) mmol/L Anion Gap 9 L (12-20) BUN 12 (9-16) mg/dL Creatinine 0.63 (0.5-1.4) mg/dL Estim Creat Clear Calc 118.4 Estimated GFR > 60 Random Glucose 86 (60-115) mg/dL Calcium 8.7 D (8.4-10.2) mg/dL Total Bilirubin 0.5 (0.0-1.0) mg/dL AST 22 (5-31) U/L ALT 9 (0-31) U/L Alkaline Phosphatase 52 (39-117) U/L Troponin I High Sens < 2.7 (<3.5-17.0) ng/L Total Protein 7.0 (6.5-8.0) g/dL Albumin 4.2 (3.5-5.0) g/dL Lipase 38 (8-78) U/L Beta HCG, Quant < 2 mIU/mL Urine Color Yellow Urine Appearance Clear Urine pH 6.5 (5.0-9.0) Ur Specific [place] 1.010 (1.005-1.025) Urine Protein Negative (Neg-Trace) mg/dL Urine Glucose (UA) Negative (Negative) mg/dL Urine Ketones Negative (Negative) mg/dL Urine Blood Moderate (2+) H (Negative) Urine Nitrite Negative (Negative) Ur Leukocyte Esterase Negative (Negative) Urine RBC 0-2 (0-2) /HPF Urine WBC 0-5 (0-5) /HPF Ur Squamous Epith Cells 3-5 (0-2) /HPF Urine Bacteria None Seen (None Seen) Hyaline Casts 0-2 (0-2) /LPF Influenza Type A (PCR) NEGATIVE (Negative) Influenza Type B (PCR) NEGATIVE (Negative) RSV RNA Qual (PCR) NEGATIVE (Negative) SARS-CoV-2 RNA (RT-PCR) NEGATIVE (Negative) Discharge Plan Discharge Clinical Impression: Near syncope Patient Disposition: Home, Self-Care Instructions: Near Syncope (ED) Additional Instructions: Your workup in the ER today was reassuring. Your symptoms are likely related to not eating throughout the day. You were given IV fluids and Tylenol I recommend that you follow up with your primary doctor, return for new or worsening symptoms Prescriptions: No Action desogestrel-ethinyl estradiol [Apri] 0.15-0.03 mg tablet 1 tab PO DAILY 28 Days Qty: 28 2RF Print Language: Albanian
[2025-04-24 17:25] VITALS: BP 104/54; PULSE 52
[2025-04-24 17:26] VITALS: BP 106/58; PULSE 50
[2025-04-24 17:34] VITALS: O2SAT 98
[2025-04-24 17:34] LABS: Alanine Aminotransferase 9 U/L (0-31); Albumin Level 4.2 g/dL (3.5-5.0); Alkaline Phosphatase 52 U/L (39-117); Anion Gap 9 (12-20); Aspartate Amino Transferase 22 U/L (5-31); Blood Urea Nitrogen 12 mg/dL (9-16); Calcium 8.7 mg/dL (8.4-10.2); Carbon Dioxide 22 mmol/L (22-29); Chloride 112 mmol/L (96-108); Creatinine Clr Calc Pharmacy 118.4; Estimated Glomerular Filt Rate > 60; Lipase 38 U/L (8-78); Potassium 3.5 mmol/L (3.3-5.1); Sodium 139 mmol/L (135-145); Total Protein 7.0 g/dL (6.5-8.0)
[2025-04-24 17:37] LABS: Troponin-I High Sensitivity < 2.7 ng/L (<3.5-17.0)
--- NOTE | 2025-04-24 17:38 | PC.NURSE ---
pt to ED from work at [employer] where she had a near syncopal episode. she states she felt the back of her head get hot, she felt dizzy and almost passed out. bystanders helped her to the ground - no fall or HS with lowering. She remembers events. states similar episodes in the past. IN ED she states she feels weak but otherwise well. no BOWLES or dizziness. Orthostatic vitals complete, labs and EKG complete. fluids infusing as ordered. UA pending
[2025-04-24 17:55] LABS: Resp Syncy Virus RNA Qual PCR NEGATIVE (Negative); SARS COV2 PCR INHOUSE NEGATIVE (Negative)
[2025-04-24 19:35] LABS: Appearance Urine Clear; Glucose Urine UA Negative (Negative); PH 6.5 (5.0-9.0); Specific Gravity - Urine 1.010 (1.005-1.025); UMIC TRIGGER UACC YES
[2025-04-24 20:11] VITALS: BP 113/50; PULSE 57; RESP 16; TEMP 36.8; O2SAT 100
== END 2025-04-24 20:12 | disposition home or self-care (01) ==
PROVIDERS: Physician Assistant; Emergency Provider Emergency Medicine
DX: R55 Syncope and collapse (principal); R51.9 Headache, unspecified; R53.1 Weakness; M54.9 Dorsalgia, unspecified
CPT/HCPCS: 80053; 81001; 83690; 84484; 84702; 85025; 87637; 93005; 96360; 99284; 99285

== ENCOUNTER → 2025-04-24 16:41 | Outpatient (BNV) | payer MEDICAID, SELFPAY | PROVIDERS: Emergency Provider Emergency Medicine; Visit Provider Internal Medicine Cardiovascular Disease | DX: R55 Syncope and collapse (principal) | CPT/HCPCS: 93010 ==